=== PATIENT | female | born 1980 | race Hispanic/Latino ===

== ENCOUNTER 2020-03-24 06:43 | Outpatient (CLI) | payer OTHER ==
--- NOTE | 2020-03-24 09:14 | ULT ---
PELVIC ULTRASOUND: HISTORY: Pelvic pain, abnormal uterine bleeding. FINDINGS: Real-time imaging of the pelvis was obtained transabdominally as well as with an endovaginal probe. This shows an enlarged bulky-appearing uterus. It measures 6.8 x 8.7 x 10.4 cm in size. There is an ill-defined area of altered echogenicity in the fundus region measuring 2.3 cm suggestive of a fibro id. Endometrium is somewhat distorted related to this apparent fibroid and measures in the 6-7 mm ra nge. Neither right or left ovary is definitively visualized. IMPRESSION: Enlarged bulky-appearing uterus. This is probably related to fibromatous change in the fundus region s. One probable fibroid is seen in this region measuring 2.3 cm somewhat distorts the endometrial st ripe, but I would still favor that this is not an endometrial mass, although this is not excluded. M RI may be helpful in further assessment if indicated. POS: BALDEV
== END 2020-03-24 06:44 | disposition home or self-care (01) ==
LOC: BICULT 06:43
PROVIDERS: ATTEND Nurse Practitioner Women's Health
DX: N93.9 Abnormal uterine and vaginal bleeding, unspecified (principal); N85.2 Hypertrophy of uterus
CPT/HCPCS: 76856

== ENCOUNTER 2021-03-31 17:38 | Inpatient (IN) | payer SELFPAY ==
[2021-03-31 20:34] LABS: #Lymphocytes 1.2 thou/uL (1.20-3.40); #Monocytes 0.3 thou/uL (0.11-0.59); #Neutrophils 4.5 thou/uL (1.40-6.50); %Eosinophils 0.2 % (0.0-10.0); %Lymphocytes 20.6 % (21.0-51.0); %Monocytes 4.5 % (0.0-10.0); %Neutrophils 74.6 % (42.0-75.0); Hemoglobin 13.6 g/dL (12.0-16.0); Mean Corpuscular HGB CONC 31.8 g/dL (32.0-36.0); Mean Corpuscular Hemoglobin 24.5 pg (27.0-31.0); Mean Corpuscular Volume 77.1 fL (78.0-98.0); Mean Platelet Volume 8.9 fL (7.4-10.4); Platelet Count 252 thou/uL (130-400); RBC Distribution Width 17.3 % (11.5-14.5); Red Blood Cell (RBC) Count 5.55 mill/uL (4.20-5.40)
[2021-03-31 20:57] LABS: ALT (SGPT) 49 U/L (8-55); AST (SGOT) 50 U/L (5-34); Albumin 3.8 g/dL (3.5-5.0); Alkaline Phosphatase 134 U/L (40-110); Anion Gap 14 mmol/L (10-20); BUN (Urea Nitrogen) 7 mg/dL (7.0-18.7); Bilirubin, Total 0.3 mg/dL (0.2-1.2); Calc. Creatinine Clearance 0 mL/min (70-130); Calcium 8.6 mg/dL (7.8-10.44); Carbon Dioxide 24 mmol/L (22-29); Chloride 104 mmol/L (98-107); Globulin 3.7 g/dL (2.4-3.5); Glucose 262 mg/dL (70-105); Potassium 3.9 mmol/L (3.5-5.1); Protein, Total 7.5 g/dL (6.0-8.3); Sodium 138 mmol/L (136-145)
[2021-03-31] MEDS ORDERED: Acetaminophen 500 MG TAB ONE (22:05)
[2021-03-31] MEDS ORDERED: Dexamethasone 4 mg/ml Vial ONE (22:38)
[2021-03-31] MEDS ORDERED: Bisacodyl 5 MG TAB PO PRN (23:35)
[2021-03-31] MEDS ORDERED: Ondansetron PF 4 MG/2 ML Vial IVP PRN (23:35)
[2021-03-31] MEDS ORDERED: Senokot S 8.6-50 MG TAB PO PRN (23:35)
[2021-03-31] MEDS ORDERED: Melatonin 3 MG TAB PO PRN (23:41)
[2021-03-31] MEDS ORDERED: Enoxaparin Sodium 40 MG/0.4 ML SYRINGE SC SCH (23:45)
[2021-03-31 23:46] LABS: SARS-CoV-2 NAA Rapid Test DETECTED (NotDetected)
[2021-04-01] MEDS ORDERED: REMDESIVIR IVPB PRN (00:16)
[2021-04-01] MEDS ORDERED: Dextrose 50% Abboject 50 ML SYRINGE SLOW IVP PRN (00:19)
[2021-04-01] MEDS ORDERED: Dextrose 5% in Water 1,000 ML IV PRN (00:19)
[2021-04-01] MEDS ORDERED: Azithromycin 500 MG in Sodium Chloride 0.9% 250 ML 250 ML IVPB SCH (01:00)
[2021-04-01 01:54] VITALS: BMI 48.5
[2021-04-01] MEDS ORDERED: cefTRIAXone\\ROCEPHIN 2 GM in Sodium Chloride 0.9% 100 ML IVPB SCH (02:00)
[2021-04-01] MEDS: Albuterol 200 PUFF (6.7GM INHALER) INH SCH ×6 (02:30→21:59)
[2021-04-01] MEDS: Guaifenesin DM 100-10/5 ML UDCUP PO PRN ×2 (04:58→09:08)
[2021-04-01] MEDS: HumaLOG 300 UNITS/3 ML VIAL SC PRN ×4 (05:58→21:59)
[2021-04-01 06:02] LABS: #Lymphocytes 0.9 thou/uL (1.20-3.40); #Monocytes 0.1 thou/uL (0.11-0.59); #Neutrophils 3.5 thou/uL (1.40-6.50); %Basophils 0.4 % (0.0-1.0); %Eosinophils 0.2 % (0.0-10.0); %Lymphocytes 19.3 % (21.0-51.0); %Monocytes 2.2 % (0.0-10.0); %Neutrophils 77.8 % (42.0-75.0); Hemoglobin 12.7 g/dL (12.0-16.0); Mean Corpuscular HGB CONC 31.2 g/dL (32.0-36.0); Mean Corpuscular Hemoglobin 24.1 pg (27.0-31.0); Mean Corpuscular Volume 77.2 fL (78.0-98.0); Mean Platelet Volume 8.9 fL (7.4-10.4); Platelet Count 225 thou/uL (130-400); RBC Distribution Width 17.3 % (11.5-14.5); Red Blood Cell (RBC) Count 5.27 mill/uL (4.20-5.40); White Blood Cell (WBC) Count 4.5 thou/uL (4.8-10.8)
[2021-04-01 06:21] LABS: Hemoglobin A1c 8.9 % (4.0-6.0)
[2021-04-01 06:27] LABS: ALT (SGPT) 42 U/L (8-55); AST (SGOT) 45 U/L (5-34); Albumin 3.3 g/dL (3.5-5.0); Alkaline Phosphatase 117 U/L (40-110); Anion Gap 16 mmol/L (10-20); BUN (Urea Nitrogen) 8 mg/dL (7.0-18.7); Bilirubin, Total 0.3 mg/dL (0.2-1.2); Calc. Creatinine Clearance 179 mL/min (70-130); Calcium 8.2 mg/dL (7.8-10.44); Carbon Dioxide 20 mmol/L (22-29); Chloride 106 mmol/L (98-107); Globulin 3.9 g/dL (2.4-3.5); Glucose 348 mg/dL (70-105); Potassium 3.7 mmol/L (3.5-5.1); Protein, Total 7.2 g/dL (6.0-8.3); Sodium 138 mmol/L (136-145)
[2021-04-01] MEDS: Zinc Sulfate 220 MG CAP PO SCH (08:56)
[2021-04-01] MEDS: Cholecalciferol (Vitamin D3) 400 UNITS TAB PO SCH (08:56)
[2021-04-01] MEDS: Ascorbic Acid 500 mg Chewable Tablet PO SCH (08:56)
[2021-04-01] MEDS: Enoxaparin Sodium 40 MG/0.4 ML SYRINGE SC SCH (08:57)
[2021-04-01] MEDS ORDERED: Insulin Regular 300 UNITS/3 ML VIAL ONE (12:03)
[2021-04-01] MEDS: Dexamethasone 10 MG/ML VIAL SLOW IVP SCH (12:25)
[2021-04-01] MEDS: hydrALAZINE 20 MG/ML VIAL SLOW IVP PRN ×2 (13:52→22:14)
[2021-04-01] MEDS: Calcium Carbonate 500 MG ChewTAB PO PRN (14:26)
[2021-04-01] MEDS: guaiFENesin/Codeine 200 mg/20 mg 10 ml Cup PO PRN ×2 (14:39→21:59)
[2021-04-01 17:23] LABS: Troponin I Less than 0.010 ng/mL (< 0.028)
[2021-04-01] MEDS ORDERED: Labetalol HCl 100 MG/20 ML VIAL SLOW IVP PRN (22:29)
[2021-04-02] MEDS: Calcium Carbonate 500 MG ChewTAB PO PRN ×4 (00:30→21:54)
[2021-04-02] MEDS: Albuterol 200 PUFF (6.7GM INHALER) INH SCH ×6 (02:28→21:57)
[2021-04-02] MEDS: Acetaminophen 325 MG TAB PO PRN ×3 (02:28→17:23)
[2021-04-02] MEDS ORDERED: cefTRIAXone\\ROCEPHIN 2 GM in Sodium Chloride 0.9% 100 ML IVPB SCH (05:00)
[2021-04-02] MEDS ORDERED: Azithromycin 500 MG in Sodium Chloride 0.9% 250 ML 250 ML IVPB SCH (06:00)
[2021-04-02] MEDS: HumaLOG 300 UNITS/3 ML VIAL SC PRN ×4 (06:07→21:55)
[2021-04-02] MEDS: guaiFENesin/Codeine 200 mg/20 mg 10 ml Cup PO PRN ×4 (06:25→21:55)
[2021-04-02] MEDS: Ascorbic Acid 500 mg Chewable Tablet PO SCH (08:23)
[2021-04-02] MEDS: Cholecalciferol (Vitamin D3) 400 UNITS TAB PO SCH (08:23)
[2021-04-02] MEDS: Enoxaparin Sodium 40 MG/0.4 ML SYRINGE SC SCH (08:23)
[2021-04-02] MEDS: Zinc Sulfate 220 MG CAP PO SCH (08:23)
[2021-04-02] MEDS: Dexamethasone 10 MG/ML VIAL SLOW IVP SCH (08:23)
[2021-04-02] MEDS ORDERED: Dexamethasone 10 MG/ML VIAL SLOW IVP SCH (14:00)
[2021-04-02] MEDS: hydrALAZINE 20 MG/ML VIAL SLOW IVP PRN (16:21)
[2021-04-02] MEDS: metFORMIN 500 MG TAB PO SCH (21:56)
[2021-04-03] MEDS: Acetaminophen 325 MG TAB PO PRN ×4 (01:59→22:00)
[2021-04-03] MEDS: Albuterol 200 PUFF (6.7GM INHALER) INH SCH ×6 (02:54→22:07)
[2021-04-03] MEDS: Calcium Carbonate 500 MG ChewTAB PO PRN ×4 (02:54→18:20)
[2021-04-03 04:36] LABS: #Lymphocytes 0.8 thou/uL (1.20-3.40); #Monocytes 0.8 thou/uL (0.11-0.59); %Basophils 0.1 % (0.0-1.0); %Eosinophils 0.2 % (0.0-10.0); %Lymphocytes 8.3 % (21.0-51.0); %Monocytes 8.6 % (0.0-10.0); %Neutrophils 82.9 % (42.0-75.0); Mean Corpuscular HGB CONC 32.5 g/dL (32.0-36.0); Mean Corpuscular Hemoglobin 25.1 pg (27.0-31.0); Mean Corpuscular Volume 77.2 fL (78.0-98.0); Mean Platelet Volume 9.3 fL (7.4-10.4); Platelet Count 276 thou/uL (130-400); RBC Distribution Width 17.3 % (11.5-14.5); Red Blood Cell (RBC) Count 4.79 mill/uL (4.20-5.40); White Blood Cell (WBC) Count 9.6 thou/uL (4.8-10.8)
[2021-04-03 04:52] LABS: Anion Gap 17 mmol/L (10-20); BUN (Urea Nitrogen) 16 mg/dL (7.0-18.7); CRP (Inflammatory) 1.23 mg/dL (= or < 0.5); Calc. Creatinine Clearance 159 mL/min (70-130); Carbon Dioxide 21 mmol/L (22-29); Chloride 101 mmol/L (98-107); Glucose 422 mg/dL (70-105); Potassium 4.1 mmol/L (3.5-5.1); Sodium 135 mmol/L (136-145)
[2021-04-03] MEDS: HumaLOG 300 UNITS/3 ML VIAL SC PRN ×4 (06:13→22:01)
[2021-04-03] MEDS: Ascorbic Acid 500 mg Chewable Tablet PO SCH (08:44)
[2021-04-03] MEDS: Zinc Sulfate 220 MG CAP PO SCH (08:44)
[2021-04-03] MEDS: Cholecalciferol (Vitamin D3) 400 UNITS TAB PO SCH (08:44)
[2021-04-03] MEDS: metFORMIN 500 MG TAB PO SCH ×2 (08:45→21:50)
[2021-04-03] MEDS: Enoxaparin Sodium 40 MG/0.4 ML SYRINGE SC SCH (08:45)
[2021-04-03] MEDS: Dexamethasone 10 MG/ML VIAL SLOW IVP SCH (08:45)
[2021-04-03] MEDS ORDERED: Lantus 1000 UNITS/10 ML VIAL SC SCH (11:00)
[2021-04-03] MEDS ORDERED: Insulin Regular 300 UNITS/3 ML VIAL ONE (12:04)
[2021-04-03] MEDS: hydrALAZINE 20 MG/ML VIAL SLOW IVP PRN ×2 (12:34→19:19)
[2021-04-03] MEDS: guaiFENesin/Codeine 200 mg/20 mg 10 ml Cup PO PRN ×2 (13:58→21:59)
[2021-04-04 05:32] LABS: #Lymphocytes 1.8 thou/uL (1.20-3.40); #Monocytes 1.3 thou/uL (0.11-0.59); #Neutrophils 9.2 thou/uL (1.40-6.50); %Basophils 0.1 % (0.0-1.0); %Eosinophils 0.1 % (0.0-10.0); %Lymphocytes 14.5 % (21.0-51.0); %Monocytes 10.4 % (0.0-10.0); %Neutrophils 74.9 % (42.0-75.0); Hemoglobin 12.3 g/dL (12.0-16.0); Mean Corpuscular Hemoglobin 23.9 pg (27.0-31.0); Mean Corpuscular Volume 74.8 fL (78.0-98.0); Mean Platelet Volume 8.9 fL (7.4-10.4); Platelet Count 437 thou/uL (130-400); RBC Distribution Width 17.1 % (11.5-14.5); Red Blood Cell (RBC) Count 5.12 mill/uL (4.20-5.40); White Blood Cell (WBC) Count 12.3 thou/uL (4.8-10.8)
[2021-04-04 05:42] LABS: Anion Gap 19 mmol/L (10-20); BUN (Urea Nitrogen) 17 mg/dL (7.0-18.7); Calc. Creatinine Clearance 140 mL/min (70-130); Calcium 9.1 mg/dL (7.8-10.44); Carbon Dioxide 22 mmol/L (22-29); Chloride 101 mmol/L (98-107); Glucose 388 mg/dL (70-105); Potassium 3.5 mmol/L (3.5-5.1); Sodium 138 mmol/L (136-145)
[2021-04-04] MEDS: HumaLOG 300 UNITS/3 ML VIAL SC PRN ×4 (05:48→20:25)
[2021-04-04] MEDS: Acetaminophen 325 MG TAB PO PRN ×2 (08:30→17:41)
[2021-04-04] MEDS: guaiFENesin/Codeine 200 mg/20 mg 10 ml Cup PO PRN ×2 (08:31→17:42)
[2021-04-04] MEDS: Dexamethasone 10 MG/ML VIAL SLOW IVP SCH (08:32)
[2021-04-04] MEDS: Zinc Sulfate 220 MG CAP PO SCH (08:32)
[2021-04-04] MEDS: Cholecalciferol (Vitamin D3) 400 UNITS TAB PO SCH (08:32)
[2021-04-04] MEDS: Enoxaparin Sodium 40 MG/0.4 ML SYRINGE SC SCH (08:32)
[2021-04-04] MEDS: metFORMIN 500 MG TAB PO SCH ×2 (08:32→20:24)
[2021-04-04] MEDS: Ascorbic Acid 500 mg Chewable Tablet PO SCH (08:34)
[2021-04-04] MEDS ORDERED: Lantus 1000 UNITS/10 ML VIAL SC SCH ×2 (09:00→17:15)
[2021-04-04] MEDS: Albuterol 200 PUFF (6.7GM INHALER) INH SCH ×4 (12:56→22:54)
[2021-04-04] MEDS ORDERED: Insulin Regular 300 UNITS/3 ML VIAL ONE (12:59)
[2021-04-04] MEDS: HumaLOG 300 UNITS/3 ML VIAL SC SCH ×2 (13:07→19:16)
[2021-04-04] MEDS ORDERED: HumaLOG 300 UNITS/3 ML VIAL SC SCH ×2 (17:12→17:30)
[2021-04-05] MEDS: Acetaminophen 325 MG TAB PO PRN ×2 (01:00→21:26)
[2021-04-05] MEDS: guaiFENesin/Codeine 200 mg/20 mg 10 ml Cup PO PRN ×4 (01:00→21:31)
[2021-04-05] MEDS: Albuterol 200 PUFF (6.7GM INHALER) INH SCH ×5 (02:57→20:10)
[2021-04-05 06:29] LABS: #Lymphocytes 1.5 thou/uL (1.20-3.40); #Monocytes 0.7 thou/uL (0.11-0.59); %Basophils 0.4 % (0.0-1.0); %Eosinophils 0.2 % (0.0-10.0); %Lymphocytes 18.1 % (21.0-51.0); %Monocytes 8.9 % (0.0-10.0); %Neutrophils 72.4 % (42.0-75.0); Hemoglobin 11.2 g/dL (12.0-16.0); Mean Corpuscular HGB CONC 33.3 g/dL (32.0-36.0); Mean Corpuscular Hemoglobin 25.1 pg (27.0-31.0); Mean Corpuscular Volume 75.4 fL (78.0-98.0); Mean Platelet Volume 8.6 fL (7.4-10.4); Platelet Count 351 thou/uL (130-400); RBC Distribution Width 16.5 % (11.5-14.5); Red Blood Cell (RBC) Count 4.44 mill/uL (4.20-5.40); White Blood Cell (WBC) Count 8.3 thou/uL (4.8-10.8)
[2021-04-05] MEDS: HumaLOG 300 UNITS/3 ML VIAL SC PRN ×4 (06:45→20:12)
[2021-04-05 06:50] LABS: Anion Gap 14 mmol/L (10-20); BUN (Urea Nitrogen) 16 mg/dL (7.0-18.7); Calc. Creatinine Clearance 179 mL/min (70-130); Calcium 8.4 mg/dL (7.8-10.44); Carbon Dioxide 24 mmol/L (22-29); Chloride 103 mmol/L (98-107); Glucose 338 mg/dL (70-105); Potassium 3.8 mmol/L (3.5-5.1); Sodium 137 mmol/L (136-145)
[2021-04-05] MEDS: Dexamethasone 10 MG/ML VIAL SLOW IVP SCH (08:30)
[2021-04-05] MEDS: Cholecalciferol (Vitamin D3) 400 UNITS TAB PO SCH (08:30)
[2021-04-05] MEDS: Zinc Sulfate 220 MG CAP PO SCH (08:30)
[2021-04-05] MEDS: metFORMIN 500 MG TAB PO SCH ×2 (08:30→20:10)
[2021-04-05] MEDS: Ascorbic Acid 500 mg Chewable Tablet PO SCH (08:30)
[2021-04-05] MEDS: HumaLOG 300 UNITS/3 ML VIAL SC SCH ×3 (08:31→16:25)
[2021-04-05] MEDS: Enoxaparin Sodium 40 MG/0.4 ML SYRINGE SC SCH (08:34)
[2021-04-05] MEDS ORDERED: Lantus 1000 UNITS/10 ML VIAL SC SCH (09:00)
[2021-04-05] MEDS ORDERED: metFORMIN 500 MG TAB PO SCH (09:45)
[2021-04-05] MEDS: Lantus 1000 UNITS/10 ML VIAL SC SCH (11:19)
[2021-04-06] MEDS: Albuterol 200 PUFF (6.7GM INHALER) INH SCH ×7 (04:50→22:44)
[2021-04-06 05:14] LABS: Anion Gap 11 mmol/L (10-20); BUN (Urea Nitrogen) 13 mg/dL (7.0-18.7); Calc. Creatinine Clearance 177 mL/min (70-130); Calcium 8.5 mg/dL (7.8-10.44); Carbon Dioxide 26 mmol/L (22-29); Chloride 103 mmol/L (98-107); Glucose 281 mg/dL (70-105); Potassium 3.8 mmol/L (3.5-5.1); Sodium 136 mmol/L (136-145)
[2021-04-06 05:16] LABS: #Lymphocytes 1.8 thou/uL (1.20-3.40); #Monocytes 0.8 thou/uL (0.11-0.59); #Neutrophils 7.2 thou/uL (1.40-6.50); %Basophils 0.2 % (0.0-1.0); %Eosinophils 0.3 % (0.0-10.0); %Lymphocytes 18.4 % (21.0-51.0); %Monocytes 8.1 % (0.0-10.0); Hemoglobin 11.4 g/dL (12.0-16.0); Mean Corpuscular HGB CONC 33.3 g/dL (32.0-36.0); Mean Corpuscular Hemoglobin 25.2 pg (27.0-31.0); Mean Corpuscular Volume 75.8 fL (78.0-98.0); Mean Platelet Volume 8.7 fL (7.4-10.4); Platelet Count 360 thou/uL (130-400); RBC Distribution Width 16.4 % (11.5-14.5); Red Blood Cell (RBC) Count 4.51 mill/uL (4.20-5.40); White Blood Cell (WBC) Count 9.9 thou/uL (4.8-10.8)
[2021-04-06] MEDS: HumaLOG 300 UNITS/3 ML VIAL SC PRN ×4 (06:12→19:37)
[2021-04-06] MEDS: guaiFENesin/Codeine 200 mg/20 mg 10 ml Cup PO PRN ×2 (06:36→19:43)
[2021-04-06] MEDS: Zinc Sulfate 220 MG CAP PO SCH (07:44)
[2021-04-06] MEDS: Enoxaparin Sodium 40 MG/0.4 ML SYRINGE SC SCH (07:44)
[2021-04-06] MEDS: Cholecalciferol (Vitamin D3) 400 UNITS TAB PO SCH (07:44)
[2021-04-06] MEDS: metFORMIN 500 MG TAB PO SCH ×2 (07:44→19:36)
[2021-04-06] MEDS: Ascorbic Acid 500 mg Chewable Tablet PO SCH (07:44)
[2021-04-06] MEDS: HumaLOG 300 UNITS/3 ML VIAL SC SCH ×3 (07:45→17:03)
[2021-04-06] MEDS: Dexamethasone 10 MG/ML VIAL SLOW IVP SCH (07:45)
[2021-04-06] MEDS: Lantus 1000 UNITS/10 ML VIAL SC SCH (07:48)
[2021-04-06] MEDS: Acetaminophen 325 MG TAB PO PRN ×2 (08:14→19:43)
[2021-04-07] MEDS: Albuterol 200 PUFF (6.7GM INHALER) INH SCH ×2 (03:06→06:31)
[2021-04-07] MEDS: Acetaminophen 325 MG TAB PO PRN (03:58)
[2021-04-07 05:46] LABS: Anion Gap 12 mmol/L (10-20); BUN (Urea Nitrogen) 13 mg/dL (7.0-18.7); Calc. Creatinine Clearance 184 mL/min (70-130); Calcium 8.5 mg/dL (7.8-10.44); Carbon Dioxide 24 mmol/L (22-29); Chloride 104 mmol/L (98-107); Glucose 230 mg/dL (70-105); Potassium 3.2 mmol/L (3.5-5.1); Sodium 137 mmol/L (136-145)
[2021-04-07 05:53] LABS: #Lymphocytes 2.4 thou/uL (1.20-3.40); #Neutrophils 7.7 thou/uL (1.40-6.50); %Basophils 0.1 % (0.0-1.0); %Eosinophils 0.4 % (0.0-10.0); %Lymphocytes 21.5 % (21.0-51.0); %Monocytes 8.9 % (0.0-10.0); %Neutrophils 69.1 % (42.0-75.0); Hemoglobin 11.5 g/dL (12.0-16.0); Mean Corpuscular HGB CONC 31.7 g/dL (32.0-36.0); Mean Corpuscular Hemoglobin 23.6 pg (27.0-31.0); Mean Corpuscular Volume 74.5 fL (78.0-98.0); Mean Platelet Volume 9.1 fL (7.4-10.4); Platelet Count 365 thou/uL (130-400); RBC Distribution Width 16.7 % (11.5-14.5); Red Blood Cell (RBC) Count 4.86 mill/uL (4.20-5.40); White Blood Cell (WBC) Count 11.1 thou/uL (4.8-10.8)
[2021-04-07] MEDS: HumaLOG 300 UNITS/3 ML VIAL SC PRN (06:31)
[2021-04-07] MEDS: HumaLOG 300 UNITS/3 ML VIAL SC SCH (07:43)
[2021-04-07] MEDS: Ascorbic Acid 500 mg Chewable Tablet PO SCH (07:44)
[2021-04-07] MEDS: metFORMIN 500 MG TAB PO SCH (07:44)
[2021-04-07] MEDS: Enoxaparin Sodium 40 MG/0.4 ML SYRINGE SC SCH (07:44)
[2021-04-07] MEDS: Cholecalciferol (Vitamin D3) 400 UNITS TAB PO SCH (07:44)
[2021-04-07] MEDS: Zinc Sulfate 220 MG CAP PO SCH (07:44)
[2021-04-07] MEDS: Lantus 1000 UNITS/10 ML VIAL SC SCH (07:44)
[2021-04-07 07:50] VITALS: BP 126/74; TEMP 98.4
[2021-04-07] MEDS ORDERED: Dexamethasone 4 MG TAB PO SCH (08:00)
[2021-04-07] MEDS ORDERED: Albuterol 200 PUFF (6.7GM INHALER) INH SCH (10:30)
== END 2021-04-07 11:07 | disposition home or self-care (01) | DRG 177 ==
LOC: ERS 17:38 → 2SW 23:16 → OBSVTOIN 04-01 09:40
PROVIDERS: ADMIT Internal Medicine; ATTEND Internal Medicine
PROC: 8E0ZXY6 Isolation (ICD-10-PCS; principal; 2021-04-01)
DX: U07.1 COVID-19 (principal); J96.01 Acute respiratory failure with hypoxia; Z68.42 Body mass index [BMI] 45.0-49.9, adult; E11.65 Type 2 diabetes mellitus with hyperglycemia; E66.9 Obesity, unspecified; I10 Essential (primary) hypertension; R12 Heartburn; Z88.0 Allergy status to penicillin
CPT/HCPCS: 0240U; 36415; 36416; 71045; 80048; 80053; 83036; 83605; 84484; 85025; 85379; 85652; 86140; 93005; 93010; 96372; 96374; 96375; G0378; J0360; J0456; J0696; J1100; J1650; J1815; J3490; J7050; J8540